=== PATIENT | female | born 1945 | race Two or more races ===

== ENCOUNTER 2018-11-29 21:51 | Inpatient (IN) | payer MEDICARE, BC ==
[2018-11-29] MEDS ORDERED: SODIUM CHLORIDE 0.9% 1,000 ML IV STA (22:27)
[2018-11-29 23:08] LABS: Basophils # (A) 0.1 k/uL (0-0.2); Basophils % (A) 1 %; Eosinophils # (A) 0.2 k/uL (0-0.7); Eosinophils % (A) 2 %; HCT 43.6 % (34.0-46.0); HGB 13.8 gm/dL (11.4-16.0); Lymphocytes % (A) 19 %; MCH 30.4 pg (25.0-35.0); MCHC 31.8 g/dL (31.0-37.0); MCV 95.5 fL (80.0-100.0); Mean Platelet Volume 8.2; Monocytes # (A) 0.6 k/uL (0-1.0); Monocytes % (A) 5 %; Neutrophils # (A) 7.6 k/uL (1.3-7.7); Neutrophils % (A) 71 %; Platelet Count 389 k/uL (150-450); RBC 4.56 m/uL (3.80-5.40); RDW 15.6 % (11.5-15.5); WBC 10.7 k/uL (3.8-10.6)
[2018-11-29 23:30] LABS: ALT 209 U/L (9-52); AST 169 U/L (14-36); Albumin 4.6 g/dL (3.5-5.0); Alkaline Phosphatase 1135 U/L (38-126); Anion Gap 17 mmol/L; Blood Urea Nitrogen 10 mg/dL (7-17); Calcium 10.6 mg/dL (8.4-10.2); Carbon Dioxide 22 mmol/L (22-30); Chloride 97 mmol/L (98-107); Glucose 357 mg/dL (74-99); Magnesium 1.8 mg/dL (1.6-2.3); Potassium 4.5 mmol/L (3.5-5.1); Sodium 136 mmol/L (137-145); Total Protein 8.7 g/dL (6.3-8.2)
[2018-11-29 23:37] LABS: Prothrombin Time 10.6 sec (9.0-12.0)
[2018-11-29 23:44] LABS: Partial Thromboplastin Time 24.1 sec (22.0-30.0)
[2018-11-29 23:52] LABS: Appearance,Urine Clear (Clear); Bilirubin,Urine 1+ (Negative); Blood,Urine Negative (Negative); Color,Urine Yellow; Glucose,Urine (UA) 4+ (Negative); Ketones,Urine 1+ (Negative); Leukocyte Esterase,Urine Negative (Negative); Nitrite,Urine Negative (Negative); PH, Urine 6.5 (5.0-8.0); Protein,Urine Trace (Negative); Specific Gravity,Urine 1.006 (1.001-1.035); Urobilinogen,Urine <2.0 mg/dL (<2.0)
[2018-11-30] LABS: Creatine Kinase 60 U/L (30-135)
[2018-11-30 00:03] LABS: Total Bilirubin 15.1 mg/dL (0.2-1.3)
--- NOTE | 2018-11-30 00:04 | XR ---
EXAMINATION TYPE: XR chest 2V DATE OF EXAM: 11/29/2018 COMPARISON: NONE HISTORY: Weakness TECHNIQUE: Frontal and lateral views of the chest are obtained. FINDINGS: Heart and mediastinum are normal. Lungs are clear. Costophrenic angles are clear. There ar e chest leads. Bony thorax is intact IMPRESSION: No active cardiopulmonary disease.
[2018-11-30 00:12] LABS: Creatine Kinase MB 0.8 ng/mL (0.0-2.4); Troponin I <0.012 ng/mL (0.000-0.034)
--- NOTE | 2018-11-30 00:56 | CT ---
EXAMINATION TYPE: CT abdomen pelvis w con DATE OF EXAM: 11/30/2018 COMPARISON: None HISTORY: Patient presents with jaundice. Patient denies pain. No prior. CT DLP: 473.6 mGycm Automated exposure control for dose reduction was used. TECHNIQUE: Helical acquisition of images was performed from the lung bases through the pelvis. CONTRAST: Performed without Oral Contrast and with IV Contrast, patient injected with 100mL mL of Isovue 300. FINDINGS: There is a 1.6 cm noncalcified nodule adjacent to the pleura in the right paraspinal right lower lobe . There are some nodular infiltrate in the lingula left upper lobe. There is no pleural effusion. There is no pericardial effusion. Heart size is normal. Spleen appears normal. There is irregular dilation of the proximal and mid pancreatic duct. Gallbladd er is large and measures almost 4 cm. There is some dilation of the intra and extrahepatic biliary tr ee. The proximal common bile duct measures 1.6 cm. Distal common bile duct appears normal at the ampu lla. There is some bulkiness of the head of the pancreas. There is atrophy of the tail of the pancrea s. There is no adrenal mass. Kidneys show satisfactory contrast opacification. There is no hydronephrosi s. Ureters are not dilated. There is no retroperitoneal adenopathy. Abdominal aorta is atheromatous. Bladder distends smoothly. There is no inguinal hernia. There is no free fluid in the pelvis. There i s no mesenteric edema. The appendix appears normal. There is no evidence of a bowel obstruction. I se e no bony destructive process. There are spondylotic changes in the lumbar spine. IMPRESSION: DILATED BILIARY TREE. BORDERLINE DILATED GALLBLADDER. DILATED PANCREATIC DUCT. TUMOR IN THE PANCREATI C HEAD IS SUSPECTED. NONCALCIFIED SUBPLEURAL RIGHT LOWER LOBE NODULE. NODULAR LINGULAR INFILTRATE.
[2018-11-30] MEDS ORDERED: NALOXONE 0.4 MG/ML 1 ML VIAL IV PRN (01:37)
--- NOTE | 2018-11-30 01:44 | ED ---
Weakness HPI - General Chief complaint: Weakness Stated complaint: Hyperglycemia Time Seen by Provider: 11/29/18 22:27 Source: patient Mode of arrival: ambulatory Limitations: no limitations - History of Present Illness Initial comments: Carmen is a pleasant 73-year-old female who presents the ED today with her son for evaluation of generalized malaise, hyperglycemia and jaundice. Patient reports that since June she has been very stressed taking care of her who is had multiple medical problems including rotator cuff surgery and CABG. Patient reports that over the past month she has just felt wiped out. She has no appetite. She's been drinking ensure because she's noticed about a 25 pound weight loss. She reports that she was complaining to her earlier in the week that she was feeling so fatigued and he checked her blood glucose and noted that it was in the 300s. Patient has no history of diabetes, she contacted her primary care physician and make a follow-up appointment and in the meantime she has been taking her 's metformin 500 mg twice a day since November 26. She's been monitoring her glucose daily and noted that it remains in the 252-80 range. Patient reports that over the course of the weekend she has noticed that her urine has become very dark and she was concerned that her face looks somewhat yellow, when her son arrived at her home this evening to visit he noticed that she looked very yellow and insisted she come to the ER for evaluation. - Related Data Home Medications Medication Instructions Recorded Confirmed Atenolol [Tenormin] 25 mg PO AC-LUNCH 11/29/18 11/29/18 Allergies Allergy/AdvReac Type Severity Reaction Status Date / Time Penicillins Allergy Rash/Hives Verified 11/29/18 22:58 Sulfa (Sulfonamide AdvReac Rash/Hives Verified 11/29/18 22:58 Antibiotics) Review of Systems ROS Statement: Those systems with pertinent positive or pertinent negative responses have been documented in the HPI. ROS Other: All systems not noted in ROS Statement are negative. Constitutional: Reports: weakness, weight change. Denies: fever Eyes: Denies: vision change Cardiovascular: Denies: chest pain, palpitations Endocrine: Reports: fatigue Gastrointestinal: Denies: abdominal pain Genitourinary: Reports: other (Dark urine) Musculoskeletal: Denies: back pain Skin: Reports: change in color (yellow). Denies: rash Neurological: Reports: weakness (generalized). Denies: headache Hematological/Lymphatic: Reports: easy bruising Past Medical History Past Medical History: Hypertension History of Any Multi-Drug Resistant Organisms: None Reported Past Surgical History: Tonsillectomy Past Psychological History: No Psychological Hx Reported Smoking Status: Current every day smoker Past Alcohol Use History: None Reported Past Drug Use History: None Reported General Exam Limitations: no limitations General appearance: alert, in no apparent distress Head exam: Present: atraumatic, normocephalic Eye exam: Present: PERRL, EOMI, scleral icterus ENT exam: Present: normal exam, mucous membranes moist Neck exam: Present: normal inspection, full ROM. Absent: tenderness, lymphadenopathy Respiratory exam: Present: normal lung sounds bilaterally Cardiovascular Exam: Present: regular rate, normal rhythm GI/Abdominal exam: Present: soft. Absent: distended, tenderness, guarding, rebound, rigid Rectal exam: Present: deferred Extremities exam: Present: normal inspection, other (Generalized atrophy) Neurological exam: Present: alert, oriented X3 Psychiatric exam: Present: normal affect, normal mood Course Vital Signs 11/29/18 22:15 Temperature 98.3 F Pulse Rate 80 Respiratory 18 Rate Blood Pressure 171/76 O2 Sat by Pulse 99 Oximetry EKG Findings - EKG Comments: EKG Findings:: EKG - Rate 81 sinus with PVC, normal axis, normal intervals LA 148, QRS 116, QTc 483. LBBB. No acute ST elevations or depressions. Medical Decision Making - Medical Decision Making Patient was seen and evaluated, history is obtained from the patient History is very concerning for possible pancreatic mass as the patient has 25 pound weight loss, painless jaundice Labs and imaging were ordered Labs with critical elevated bilirubin and alk phos Imaging were ordered Computed tomography scan concerning for a mass of the pancreatic head. Results were discussed with the patient and son at bedside. At this time I will plan to admit the patient with a consult to gastroenterology for ERCP and possible biliary duct stenting. Admission orders were placed - Lab Data Result diagrams: 11/29/18 22:50 11/29/18 22:50 Lab Results 11/29/18 11/29/18 11/29/18 Range/Units 22:50 22:50 22:50 WBC 10.7 H (3.8-10.6) k/uL RBC 4.56 (3.80-5.40) m/uL Hgb 13.8 (11.4-16.0) gm/dL Hct 43.6 (34.0-46.0) % MCV 95.5 (80.0-100.0) fL MCH 30.4 (25.0-35.0) pg MCHC 31.8 (31.0-37.0) g/dL RDW 15.6 H (11.5-15.5) % Plt Count 389 (150-450) k/uL Neutrophils % 71 % Lymphocytes % 19 % Monocytes % 5 % Eosinophils % 2 % Basophils % 1 % Neutrophils # 7.6 (1.3-7.7) k/uL Lymphocytes # 2.0 (1.0-4.8) k/uL Monocytes # 0.6 (0-1.0) k/uL Eosinophils # 0.2 (0-0.7) k/uL Basophils # 0.1 (0-0.2) k/uL PT (9.0-12.0) sec INR (<1.2) APTT (22.0-30.0) sec Sodium 136 L (137-145) mmol/L Potassium 4.5 (3.5-5.1) mmol/L Chloride 97 L (98-107) mmol/L Carbon Dioxide 22 (22-30) mmol/L Anion Gap 17 mmol/L BUN 10 (7-17) mg/dL Creatinine 0.57 (0.52-1.04) mg/dL Est GFR (CKD-EPI)AfAm >90 (>60 ml/min/1.73 sqM) Est GFR (CKD-EPI)NonAf >90 (>60 ml/min/1.73 sqM) Glucose 357 H (74-99) mg/dL Plasma Lactic Acid Bennett (0.7-2.0) mmol/L Calcium 10.6 H (8.4-10.2) mg/dL Magnesium 1.8 (1.6-2.3) mg/dL Total Bilirubin 15.1 H* (0.2-1.3) mg/dL AST 169 H (14-36) U/L ALT 209 H (9-52) U/L Alkaline Phosphatase 1135 H (38-126) U/L Total Creatine Kinase 60 (30-135) U/L CK-MB (CK-2) 0.8 (0.0-2.4) ng/mL CK-MB (CK-2) Rel Index 1.3 Troponin I <0.012 (0.000-0.034) ng/mL NT-Pro-B Natriuret Pep pg/mL Total Protein 8.7 H (6.3-8.2) g/dL Albumin 4.6 (3.5-5.0) g/dL TSH 6.060 H (0.465-4.680) mIU/L Urine Color Urine Appearance (Clear) Urine pH (5.0-8.0) Ur Specific [place] (1.001-1.035) Urine Protein (Negative) Urine Glucose (UA) (Negative) Urine Ketones (Negative) Urine Blood (Negative) Urine Nitrite (Negative) Urine Bilirubin (Negative) Urine Urobilinogen (<2.0) mg/dL Ur Leukocyte Esterase (Negative) 11/29/18 11/29/18 11/29/18 Range/Units 22:50 22:50 22:50 WBC (3.8-10.6) k/uL RBC (3.80-5.40) m/uL Hgb (11.4-16.0) gm/dL Hct (34.0-46.0) % MCV (80.0-100.0) fL MCH (25.0-35.0) pg MCHC (31.0-37.0) g/dL RDW (11.5-15.5) % Plt Count (150-450) k/uL Neutrophils % % Lymphocytes % % Monocytes % % Eosinophils % % Basophils % % Neutrophils # (1.3-7.7) k/uL Lymphocytes # (1.0-4.8) k/uL Monocytes # (0-1.0) k/uL Eosinophils # (0-0.7) k/uL Basophils # (0-0.2) k/uL PT 10.6 (9.0-12.0) sec INR 1.0 (<1.2) APTT 24.1 (22.0-30.0) sec Sodium (137-145) mmol/L Potassium (3.5-5.1) mmol/L Chloride (98-107) mmol/L Carbon Dioxide (22-30) mmol/L Anion Gap mmol/L BUN (7-17) mg/dL Creatinine (0.52-1.04) mg/dL Est GFR (CKD-EPI)AfAm (>60 ml/min/1.73 sqM) Est GFR (CKD-EPI)NonAf (>60 ml/min/1.73 sqM) Glucose (74-99) mg/dL Plasma Lactic Acid Bennett 2.0 (0.7-2.0) mmol/L Calcium (8.4-10.2) mg/dL Magnesium (1.6-2.3) mg/dL Total Bilirubin (0.2-1.3) mg/dL AST (14-36) U/L ALT (9-52) U/L Alkaline Phosphatase (38-126) U/L Total Creatine Kinase (30-135) U/L CK-MB (CK-2) (0.0-2.4) ng/mL CK-MB (CK-2) Rel Index Troponin I (0.000-0.034) ng/mL NT-Pro-B Natriuret Pep 435 pg/mL Total Protein (6.3-8.2) g/dL Albumin (3.5-5.0) g/dL TSH (0.465-4.680) mIU/L Urine Color Urine Appearance (Clear) Urine pH (5.0-8.0) Ur Specific [place] (1.001-1.035) Urine Protein (Negative) Urine Glucose (UA) (Negative) Urine Ketones (Negative) Urine Blood (Negative) Urine Nitrite (Negative) Urine Bilirubin (Negative) Urine Urobilinogen (<2.0) mg/dL Ur Leukocyte Esterase (Negative) 11/29/18 Range/Units 23:15 WBC (3.8-10.6) k/uL RBC (3.80-5.40) m/uL Hgb (11.4-16.0) gm/dL Hct (34.0-46.0) % MCV (80.0-100.0) fL MCH (25.0-35.0) pg MCHC (31.0-37.0) g/dL RDW (11.5-15.5) % Plt Count (150-450) k/uL Neutrophils % % Lymphocytes % % Monocytes % % Eosinophils % % Basophils % % Neutrophils # (1.3-7.7) k/uL Lymphocytes # (1.0-4.8) k/uL Monocytes # (0-1.0) k/uL Eosinophils # (0-0.7) k/uL Basophils # (0-0.2) k/uL PT (9.0-12.0) sec INR (<1.2) APTT (22.0-30.0) sec Sodium (137-145) mmol/L Potassium (3.5-5.1) mmol/L Chloride (98-107) mmol/L Carbon Dioxide (22-30) mmol/L Anion Gap mmol/L BUN (7-17) mg/dL Creatinine (0.52-1.04) mg/dL Est GFR (CKD-EPI)AfAm (>60 ml/min/1.73 sqM) Est GFR (CKD-EPI)NonAf (>60 ml/min/1.73 sqM) Glucose (74-99) mg/dL Plasma Lactic Acid Bennett (0.7-2.0) mmol/L Calcium (8.4-10.2) mg/dL Magnesium (1.6-2.3) mg/dL Total Bilirubin (0.2-1.3) mg/dL AST (14-36) U/L ALT (9-52) U/L Alkaline Phosphatase (38-126) U/L Total Creatine Kinase (30-135) U/L CK-MB (CK-2) (0.0-2.4) ng/mL CK-MB (CK-2) Rel Index Troponin I (0.000-0.034) ng/mL NT-Pro-B Natriuret Pep pg/mL Total Protein (6.3-8.2) g/dL Albumin (3.5-5.0) g/dL TSH (0.465-4.680) mIU/L Urine Color Yellow Urine Appearance Clear (Clear) Urine pH 6.5 (5.0-8.0) Ur Specific [place] 1.006 (1.001-1.035) Urine Protein Trace H (Negative) Urine Glucose (UA) 4+ H (Negative) Urine Ketones 1+ H (Negative) Urine Blood Negative (Negative) Urine Nitrite Negative (Negative) Urine Bilirubin 1+ H (Negative) Urine Urobilinogen <2.0 (<2.0) mg/dL Ur Leukocyte Esterase Negative (Negative) Disposition Clinical Impression: Jaundice, Mass of pancreas, Hyperbilirubinemia Disposition: ADMITTED IP TO THIS HOSP Condition: Serious Is patient prescribed a controlled substance at d/c from ED?: No Referrals: Kyleigh Aden MD [Primary Care Provider] - 1-2 days
[2018-11-30 03:00] LABS: Glucose,Whole Blood 291 mg/dL (75-99)
[2018-11-30 03:47] VITALS: BMI 18.8
[2018-11-30] MEDS: SODIUM CHLORIDE 0.9% 1,000 ML IV SCH ×2 (03:58→15:06)
[2018-11-30 05:51] LABS: Hepatitis A AB IgM Index 0.02; Hepatitis A Antibody IgM NEGATIVE
[2018-11-30 07:03] LABS: Glucose,Whole Blood 276 mg/dL (75-99)
[2018-11-30] MEDS: INSULIN ASPART 100 UNIT/ML 1 ML 10 ML VIAL SQ SCH ×3 (08:05→18:10)
[2018-11-30 11:26] LABS: Glucose,Whole Blood 148 mg/dL (75-99)
--- NOTE | 2018-11-30 12:14 | P.HPIM ---
History of Present Illness 72-year-old cousin female with no syncope and past medical history except for hypertension came in with complaints of generalized weakness and malaise hyperglycemia and jaundice. Patient is found to have septic jaundice with the total bilirubin going up to 15. Patient has a ALLERGIC discoloration and mild itching. Patient has 25 pound weight loss since June last year. Patient had a fever chills denied any abdominal pain denied any hematochezia hemoptysis. Patient blood sugars are around 240 couple occasions. I do not have any hemoglobin A1c available patient's TSH is elevated as well. I do not have any T4 available at this time. Patient does have urine not discoloration and a jaundiced urine. Patient does have mild proteinuria 1+ and the glucosuria 4+. Patient had abdominal CT which showed dilated biliary tree brought borderline dilated gallbladder dilated pancreatic ducts with the possible tumor in the head of the pancreas and there is a noncalcified subpleural right lower lobe nodule and minimal lingular infiltrate, although the there is no air bronchogram no evidence of pneumonia. Patient will need a biliary stent as well as endoscopy ultrasound after discussing with gastroenterology here, decision was made to transfer patient didn't [facility] ultrasound a stent placement. Review of Systems REVIEW OF SYSTEMS: CONSTITUTIONAL: As mentioned in HPI HEENT: No recent visual problems or hearing problems. Denied any sore throat. CARDIOVASCULAR: No chest pain, orthopnea, PND, no palpitations, no syncope. PULMONARY: No shortness of breath, no cough, no hemoptysis. GASTROINTESTINAL: No diarrhea, no nausea, no vomiting, no abdominal pain. NEUROLOGICAL: No headaches, no weakness, no numbness. HEMATOLOGICAL: Denies any bleeding or petechiae. GENITOURINARY: Denies any burning micturition, frequency, or urgency. MUSCULOSKELETAL/RHEUMATOLOGICAL: Denies any joint pain, swelling, or any muscle pain. ENDOCRINE: Denies any polyuria or polydipsia. The rest of the 14-point review of systems is negative. Past Medical History Past Medical History: Hypertension Additional Past Medical History / Comment(s): Arthritis, allergies, per patient she takes Atenolol for her "fast pulse" History of Any Multi-Drug Resistant Organisms: None Reported Past Surgical History: Tonsillectomy Additional Past Surgical History / Comment(s): Vaginal births Past Anesthesia/Blood Transfusion Reactions: No Reported Reaction Past Psychological History: No Psychological Hx Reported Smoking Status: Current every day smoker Past Alcohol Use History: None Reported Past Drug Use History: None Reported - Past Family History Mother Family Medical History: Cancer Additional Family Medical History / Comment(s): Colon cancer Medications and Allergies Home Medications Medication Instructions Recorded Confirmed Type Atenolol [Tenormin] 25 mg PO AC-LUNCH 11/29/18 11/29/18 History Multivitamins, Thera [Multivitamin 1 tab PO DAILY 11/30/18 11/30/18 History (formulary)] Allergies Allergy/AdvReac Type Severity Reaction Status Date / Time Penicillins Allergy Severe Anaphylaxis Verified 11/30/18 03:47 Influenza Virus Vaccines AdvReac Unknown Verified 11/30/18 03:49 Sulfa (Sulfonamide AdvReac Rash/Hives Verified 11/29/18 22:58 Antibiotics) Lipsticks AdvReac Swelling Uncoded 11/30/18 03:54 Physical Exam Vitals: Vital Signs Temp Pulse Pulse Resp BP BP Pulse Ox 11/30/18 05:00 98.2 F 89 15 146/70 96 11/30/18 03:29 98.2 F 91 16 175/79 97 11/30/18 02:55 98.0 F 83 16 153/72 97 11/29/18 22:15 98.3 F 80 18 171/76 99 Intake and Output 11/29/18 11/30/18 11/30/18 22:59 06:59 14:59 Intake Total 600 Balance 600 Intake: Intake, IV Titration 600 Amount Sodium Chloride 0.9% 1, 600 000 ml @ 75 mls/hr IV . [id number] [facility] Rx#:[id number] Other: # Voids 2 Weight 51.256 kg 51.256 kg PHYSICAL EXAMINATION: GENERAL: The patient is alert and oriented x3, not in any acute distress. Thin built female. Yellowish discoloration of the skin HEENT: Pupils are round and equally reacting to light. EOMI. does have scleral icterus. No conjunctival pallor. Normocephalic, atraumatic. No pharyngeal erythema. No thyromegaly. CARDIOVASCULAR: S1 and S2 present. No murmurs, rubs, or gallops. PULMONARY: Chest is clear to auscultation, no wheezing or crackles. ABDOMEN: Soft, nontender, nondistended, normoactive bowel sounds. No palpable organomegaly. MUSCULOSKELETAL: No joint swelling or deformity. EXTREMITIES: No cyanosis, clubbing, or pedal edema. NEUROLOGICAL: Gross neurological examination did not reveal any focal deficits. SKIN: No rashes. Results CBC & Chem 7: 11/29/18 22:50 11/29/18 22:50 Labs: Abnormal Lab Results - Last 24 Hours (Table) 11/29/18 11/29/18 11/29/18 Range/Units 22:50 22:50 23:15 WBC 10.7 H (3.8-10.6) k/uL RDW 15.6 H (11.5-15.5) % Sodium 136 L (137-145) mmol/L Chloride 97 L (98-107) mmol/L Glucose 357 H (74-99) mg/dL POC Glucose (mg/dL) (75-99) mg/dL Calcium 10.6 H (8.4-10.2) mg/dL Total Bilirubin 15.1 H* (0.2-1.3) mg/dL AST 169 H (14-36) U/L ALT 209 H (9-52) U/L Alkaline Phosphatase 1135 H (38-126) U/L Total Protein 8.7 H (6.3-8.2) g/dL TSH 6.060 H (0.465-4.680) mIU/L Urine Protein Trace H (Negative) Urine Glucose (UA) 4+ H (Negative) Urine Ketones 1+ H (Negative) Urine Bilirubin 1+ H (Negative) 11/30/18 11/30/18 11/30/18 Range/Units 02:57 07:02 11:25 WBC (3.8-10.6) k/uL RDW (11.5-15.5) % Sodium (137-145) mmol/L Chloride (98-107) mmol/L Glucose (74-99) mg/dL POC Glucose (mg/dL) 291 H 276 H 148 H (75-99) mg/dL Calcium (8.4-10.2) mg/dL Total Bilirubin (0.2-1.3) mg/dL AST (14-36) U/L ALT (9-52) U/L Alkaline Phosphatase (38-126) U/L Total Protein (6.3-8.2) g/dL TSH (0.465-4.680) mIU/L Urine Protein (Negative) Urine Glucose (UA) (Negative) Urine Ketones (Negative) Urine Bilirubin (Negative) Thrombosis Risk Factor Assmnt - Choose All That Apply Any of the Below Risk Factors Present?: No Each Risk Factor Represents 2 Points: Age 61-74 years Other congenital or acquired thrombophilia - If yes, enter type in comment: No Thrombosis Risk Factor Assessment Total Risk Factor Score: 2 Thrombosis Risk Factor Assessment Level: Low Risk Assessment and Plan Plan: -Obstructive jaundice: With possible pancreatic mass which need endoscopic ultrasound and a biliary stent as mentioned above patient will be transferred to [facility]. Not obtaining CA-19-9 as patient is being transferred to [facility]. -Nodular lesion in the lung, malignancy cannot be ruled out. -Elevated blood sugars hemoglobin A1c need to be obtained patient may be diabetic with 4+ glycosuria and blood sugars ranging around 250 -Elevated liver enzymes secondary to obstruction the biliary tree by possible pancreatic mass -Leukocytosis reactive no evidence of infection. -Elevated TSH: T4 will be obtained patient does have signs and symptoms of hypothyroidism including excessive drowsiness and sleepiness As mentioned above patient will be transferred to [facility] discussed with the hospitalist at [facility] who accepted the patient.
--- NOTE | 2018-11-30 12:15 | P.DS ---
Providers Date of admission: 11/30/18 01:44 Attending physician: Nica Perry Consults: 11/30/18 01:38 Consult Physician Urgent Consulting Provider: Kayla Guerra Consult Reason/Comments: acute jaundice 2/2 pancreatic mass Do you want consulting provider notified?: Yes Primary care physician: Markie Arizmendi [facility] Course: As mentioned in HPI Patient Condition at Discharge: Serious Plan - Discharge Summary Discharge Rx Participant: Yes New Discharge Prescriptions: No Action Atenolol [Tenormin] 25 mg PO AC-LUNCH Multivitamins, Thera [Multivitamin (formulary)] 1 tab PO DAILY Discharge Medication List Atenolol [Tenormin] 25 mg PO AC-LUNCH 11/29/18 [History] Multivitamins, Thera [Multivitamin (formulary)] 1 tab PO DAILY 11/30/18 [History ] Follow up Appointment(s)/Referral(s): Kyleigh Aden MD [Primary Care Provider] - 1-2 days
[2018-11-30 12:20] VITALS: BP 145/63; PULSE 78; RESP 17; TEMP 98.1
[2018-11-30 12:22] LABS: Hepatitis B Core IgM Non-Reactive (Non-Reactive)
[2018-11-30 12:47] LABS: Hemoglobin A1C 10.2 % (4.0-6.0)
[2018-11-30] MEDS ORDERED: CALCIUM CARBONATE 500 MG CHEWABLE PO PRN (14:53)
[2018-11-30 16:39] LABS: Glucose,Whole Blood 290 mg/dL (75-99)
== END 2018-11-30 20:11 | disposition short-term general hospital (02) | DRG 445 ==
LOC: EC 21:51 → 3NMEDONC 11-30 01:44
PROVIDERS: ADMIT Hospitalist; ATTEND Hospitalist
DX: K83.1 Obstruction of bile duct (principal); Z68.1 Body mass index [BMI] 19.9 or less, adult; D72.829 Elevated white blood cell count, unspecified; F17.210 Nicotine dependence, cigarettes, uncomplicated; I10 Essential (primary) hypertension; K86.9 Disease of pancreas, unspecified; Z80.0 Family history of malignant neoplasm of digestive organs; R63.4 Abnormal weight loss; E11.65 Type 2 diabetes mellitus with hyperglycemia; Z88.0 Allergy status to penicillin; Z88.2 Allergy status to sulfonamides; Z88.7 Allergy status to serum and vaccine; R91.1 Solitary pulmonary nodule; M19.90 Unspecified osteoarthritis, unspecified site; R94.6 Abnormal results of thyroid function studies
CPT/HCPCS: 36415; 71046; 74177; 80053; 80074; 81003; 82550; 82553; 83036; 83605; 83735; 83880; 84443; 84484; 85025; 85610; 85730; 87040; 93005; 96360; 96361; 99285